=== PATIENT | female | born 1995 | race Caucasian/White ===

== ENCOUNTER → 2017-11-16 | Outpatient (CLI) | payer MEDICAID, OTHER ==
[~2017-11-16] MED LIST: IBUP600T26 PO; ORTH0.35 PO
== END ==
LOC: HPND 10:07
PROVIDERS: ATTEND Obstetrics & Gynecology
DX: O99.212 Obesity complicating pregnancy, second trimester (principal); E66.09 Other obesity due to excess calories; Z68.36 Body mass index [BMI] 36.0-36.9, adult; O34.212 Maternal care for vertical scar from previous cesarean delivery
CPT/HCPCS: 76811

== ENCOUNTER → 2017-12-16 | Outpatient (CLI) | payer MEDICAID | LOC: HPND 10:11 | PROVIDERS: ATTEND Obstetrics & Gynecology | DX: O99.212 Obesity complicating pregnancy, second trimester (principal); E66.09 Other obesity due to excess calories; Z68.36 Body mass index [BMI] 36.0-36.9, adult; O34.211 Maternal care for low transverse scar from previous cesarean delivery | CPT/HCPCS: 76816 ==

== ENCOUNTER 2018-04-05 08:31 | Inpatient (IN) ==
--- NOTE | 2018-04-05 08:52 | P.HPOB ---
History of Present Illness Chief Complaint: Repeat History of Present Illness: Patient is a 22 year old at 39 weeks who presents for scheduled c/s. She received at [facility]. She denies any complications during this . Patient denies contractions, vaginal bleeding, fluid leakage. She endorses positive movement. OBHx: 1. 2013: 36wk IOL for preE (severe) -- complicated by A1GDM, PPH and D&C 2. 2015: 37wk IOL for preE (severe) -- failure to progress -- C/S 3. current, declines , not on ASA 81mg, failed 1'hr, passed 3hr Weeks Gestation:: 39 Para: 2 : 3 Review of Systems All other systems reviewed negative except as stated in HPI PMFSH - Medical / Surgical Hx Neg / Unobtainable Medical Problems Denied: Yes - Medical History Medical History: Medical History History of delivery affecting - Surgical History Surgical History: Surgical History History of tonsillectomy and adenoidectomy - Tobacco History Smoking Status: Never smoker - Alcohol History How Often Do You Have a Drink Containing Alcohol: Never - Substance Use History Substance History: No History of Abuse Medications and Allergies Allergies Allergy/AdvReac Type Severity Reaction Status Date / Time latex Allergy Unknown rash, hives Unverified 03/03/ 02:20 Exam Narrative: GENERAL: Well-nourished, well-developed patient. SKIN: Warm and dry. HEAD: Normocephalic and atraumatic. EYES: No scleral icterus. No injection or drainage. ENT: No nasal drainage noted. Mucous membranes pink. Airway patent. NECK: Supple, trachea midline. No JVD. CARDIOVASCULAR: Regular rate and rhythm without murmurs, gallops, or rubs. RESPIRATORY: Breath sounds equal bilaterally. No accessory muscle use. ABDOMEN/GI: Abdomen soft, non-tender, bowel sounds present, no rebound, no guarding Gravid to 39 weeks size GENITOURINARY: External Genitalia: intact and normal in appearance Membranes: intact Uterine Contractions: none FHT's: Category: 1 Baseline: 145 Reactive: + Variability: moderate Decels: none EXTREMITIES: No cyanosis or edema. NEUROLOGICAL: Awake and alert. Motor and sensory grossly within normal limits. Five out of 5 muscle strength in all muscle groups. Normal speech. Assessment and Plan Patient is a 22 year old at 39 weeks who presents for scheduled c/s. - Plan c/s scheduled for 10:30 a.m. Routine pre-op orders placed. Discussed with OB hospitalist.
[2018-04-05] MEDS ORDERED: Citric Acid/Sodium Citrate Liq 30 ML UDC PO SCH (09:00)
[2018-04-05] MEDS ORDERED: Morphine Sulfate PF Inj 5 MG/10 ML Ampul ONE (09:14)
[2018-04-05 09:31] LABS: Baso % (Auto) 0.3 % (0.0-2.0); Eos % (Auto) 0.1 % (0.0-4.0); Hematocrit 36.6 % (35.0-46.0); Hemoglobin 12.1 gm/dL (11.6-15.3); Lymph # (Auto) 2.1 th/mm3 (1.0-4.8); Lymph % (Auto) 29.7 % (9.0-44.0); Mean Corpuscular Hemoglobin 26.9 pg (27.0-34.0); Mean Corpuscular Volume 81.5 fL (80.0-100.0); Mono # (Auto) 0.4 th/mm3 (0.0-0.9); Mono % (Auto) 5.9 % (0.0-8.0); Neut # (Auto) 4.6 th/mm3 (1.8-7.7); Platelet Count 178 th/mm3 (150-450); Red Blood Count 4.49 mil/mm3 (4.00-5.30); Red Cell Distribution Width 16.4 % (11.6-17.2); White Blood Count 7.2 th/mm3 (4.0-11.0)
[2018-04-05 09:48] LABS: Bacteria,Urine Rare /hpf; Bilirubin,Urine Negative (Negative); Clarity,Urine Hazy (Clear); Color,Urine Amber (Yellw/Straw); Glucose,Urine (UA) Negative (Negative); Leukocyte Esterase,Urine Negative (Negative); Mucus,Urine Few /lpf (Occasional); Nitrite,Urine Negative (Negative); Specific Gravity,Urine 1.029 (1.002-1.035); Squamous Epithelial Cell,Urine 6 /hpf (0-5)
[2018-04-05 09:51] LABS: Amphetamine Screen,Urine Neg (Neg); Barbiturate Screen,Urine Neg (Neg); Cannabinoid Screen,Urine Neg (Neg); Cocaine Screen,Urine Neg (Neg)
[2018-04-05 09:52] LABS: Opiate Screen,Urine Neg (Neg)
[2018-04-05] MEDS ORDERED: ceFAZolin Inj 2,000 MG in Sodium Chlor 0.9% Inj 80 ML IV.SIG SCH ×2 (10:00→18:00)
[2018-04-05] MEDS ORDERED: Phenylephrine/NS 1000 MCG/10ML Syringe IV.PUSH ONE (10:50)
[2018-04-05] MEDS ORDERED: Ketorolac Inj 30 MG/ML (IVP) Vial IV.PUSH ONE (11:45)
[2018-04-05] MEDS ORDERED: Oxytocin 30 Units/500ml Premix 30 UNITS/500 ML BAG IV.SIG ONE (12:00)
--- NOTE | 2018-04-05 12:08 | P.OBDELI ---
Procedure Note - Pre Op Diagnosis (1) History of delivery affecting (2) 39 weeks gestation of - Post Op Diagnosis (1) History of delivery affecting (2) 39 weeks gestation of Performed by: Dax Putnam MD Procedure: Repeat Low Transverse Section Indication for Delivery: Desired elective repeat Informed Consent Obtained: For procedure Confirmed Correct: Patient, Procedure, Site, Time-out taken Anesthesia: Spinal Medication Prior to Procedure: Antibiotics, IV Monitoring During Procedure: monitor Urinary Catheter: Inserted using sterile technique Sterile Preparation: In usual fashion Position: Supine with wedge to right side - Operative Features Skin Incision: Transverse Uterine Incision: Low transverse w/knife / scissors Membranes Ruptured: Artificially Presentation: Occiput anterior Status of Infant: Viable, Umbilical cord, Nursery present Placenta Delivered: Intact Medications: Antibiotics, Oxytocin Estimated blood loss (mL): 500 Procedure Tolerated: Well Maternal Condition: Stable Baby Condition: Stable Procedure in Detail: Patient was taken operating room and placed in supine position after spinal anesthesia transverse Pfannenstiel incision made in the lower abdomen not the old incision use prior. Incision carried the fascia sharply the fascia incised laterally and reflected off the rectus muscle. Perineal cavity entered sharply in the midline and the incision extended superior and inferiorly. The visceral peritoneum reflected off the lower uterine segment placed on the bladder blade. A transverse hysterotomy was made extended bluntly bilaterally and clear fluid noted. Baby delivered from cephalic presentation at 11:06 AM. Baby was female weight 3190 g 9/9, delayed cord clamping was done then cord blood obtained placenta manually extracted. The uterus exteriorized hysterotomy closed in running layer of 0 chromic followed by imbricating suture same hemostasis was achieved. Stick tie [id number] were used to achieve hemostasis lower uterine segment. The bladder reapproximated running layer of 2 -0 Vicryl. The uterus elevated blood suctioned cul-de-sac gutters the uterus replaced the peritoneal cavity. The parietal peritoneum closed running layer of 2-0 Vicryl. The rectus muscle reapproximated with stick ties of chromic. And the fascia closed in running layer of 0 Vicryl. The subcutaneous tissues and space closed with a running 0 plain catgut suture and the skin closed with 3-0 Monocryl subcuticular stitch. Pressure dressing applied low Steri- Strips. Estimate blood loss 500 cc were no complications sponge and needle correct 2 and patient recovery in stable condition - Infant: Female Female A Infant Delivery Date: 04/05/18 Delivery Time: 11:06 Weight: 3.19 kg Delivery of Infant: Uneventful score (1 min): 9 score (5 min): 9
[2018-04-05] MEDS ORDERED: Naloxone Inj 0.4 MG/ML Vial IV.PUSH PRN (14:27)
[2018-04-05] MEDS ORDERED: Oxytocin 30 Units/500ml Premix 30 UNITS/500 ML BAG IV.SIG PRN (16:57)
[2018-04-06 05:52] LABS: Hematocrit 28.6 % (35.0-46.0); Hemoglobin 9.4 gm/dL (11.6-15.3); Mean Corpuscular HGB Conc 32.9 % (32.0-36.0); Mean Corpuscular Hemoglobin 27.3 pg (27.0-34.0); Mean Corpuscular Volume 82.7 fL (80.0-100.0); Mean Platelet Volume 10.1 fL (7.0-11.0); Platelet Count 145 th/mm3 (150-450); Red Blood Count 3.45 mil/mm3 (4.00-5.30); Red Cell Distribution Width 16.3 % (11.6-17.2); White Blood Count 13.6 th/mm3 (4.0-11.0)
--- NOTE | 2018-04-06 08:13 | P.PNOB ---
Subjective Post op day: 1 Interval history: Patient is a 22-year-old delivered at 39 weeks and 2 days. Patient is day 1 after repeat c/s. Patient's pain is well-controlled. Patient reports minimal bleeding. Patient reports eating and drinking without any nausea or vomiting. Patient has not passed gas or had a bowel movement. Patient denies chest pain and shortness of breath. Patient has been ambulating; she denies lower extremity pain. Patient reports desire for contraception, which she will discuss with her PCP at her first follow-up visit. Patient has decided to breast-feed. Objective Vital Signs/I&O: Vital Signs 04/05/18 08:47 04/05/18 12:00 04/05/18 12:25 Temperature 98.1 F 97.9 F Pulse Rate 103 H 66 66 Respiratory Rate 16 18 18 Blood Pressure 123/79 99/57 L 105/62 04/05/18 12:37 04/05/18 12:58 04/05/18 13:44 Temperature 97.7 F 97.9 F Pulse Rate 57 L 57 L 56 L Respiratory Rate 16 16 22 Blood Pressure 107/58 L 102/57 L 118/72 04/05/18 16:30 04/05/18 16:57 04/05/18 19:45 Temperature 98.0 F 97.6 F Pulse Rate 76 68 Respiratory Rate 20 18 Blood Pressure 141/81 H 124/66 04/05/18 23:45 04/06/18 03:45 Temperature 97.7 F 97.7 F Pulse Rate 62 61 Respiratory Rate 18 18 Blood Pressure 107/58 L 109/60 Result Diagrams: 04/06/18 05:07 Objective Remarks: GENERAL: Well-nourished, well-developed patient. CARDIOVASCULAR: Regular rate and rhythm without murmurs, gallops, or rubs. RESPIRATORY: Breath sounds equal bilaterally. No accessory muscle use. ABDOMEN/GI: Abdomen soft, non-tender, bowel sounds present. Incision: Clean, dry and intact. Fundus: Firm, non-tender at umbilicus. GENITOURINARY: Light to moderate bleeding. EXTREMITIES: No cyanosis or edema, non-tender, without signs of DVT. Medications and IVs: Active Medications Diphenhydramine HCl (Benadryl) 50 mg PO Q6H PRN PRN Reason: MILD TO MODERATE ITCHING Stop: 04/06/18 14:26 Diphenhydramine HCl (Benadryl Inj) 25 mg IV.PUSH Q6H PRN PRN Reason: MILD TO MODERATE ITCHING Stop: 04/06/18 14:26 Diphtheria/Pertussis/Tetanus Vacc (Boostrix Vaccine Inj) 0.5 ml IM .ONCE ONE Stop: 04/06/18 16:01 Lactated Ringer's (Lr 1000 Ml Inj) 1,000 mls @ 100 mls/hr IV.CONT .Q10H [facility] Stop: 04/06/18 12:56 Last Admin: 04/06/18 07:57 Dose: Not Given Oxytocin (Pitocin 30 Units/Ns 500 Ml Premix) 30 units in 500 mls @ 100 mls/hr IV.SIG UNSCH PRN PRN Reason: Heavy bleeding Ibuprofen (Motrin) 800 mg PO Q8H PRN PRN Reason: cramping Last Admin: 04/06/18 00:40 Dose: 800 mg Measles/Mumps/Rubella Vaccine Live (M-M-R Ii Vaccine Inj) 0.5 ml SQ .ONCE ONE Stop: 04/06/18 16:01 Miscellaneous Information [place] [place] [facility] [place] 1 each OTHER UNSCH PRN PRN Reason: SEE LABEL COMMENTS Stop: 04/06/18 14:26 Miscellaneous Information [place] [place] 1 each OTHER UNSCH PRN PRN Reason: SEE LABEL COMMENTS Stop: 04/06/18 14:26 Naloxone HCl (Narcan Inj) 0.4 mg IV.PUSH UNSCH PRN PRN Reason: SEE LABEL COMMENTS Stop: 04/06/18 14:26 Oxycodone/Acetaminophen (Percocet 5/325 Mg) 1 tab PO Q4H PRN PRN Reason: PAIN SCALE 3 TO 5 Oxycodone/Acetaminophen (Percocet 5/325 Mg) 2 tab PO Q4H PRN PRN Reason: PAIN SCALE 6 TO 10 Sodium Chloride (Ns Flush) 2 ml IV.FLUSH BID [facility] Last Admin: 04/06/18 00:31 Dose: Not Given Sodium Chloride (Ns Flush) 2 ml IV.FLUSH PRN PRN PRN Reason: FLUSH AFTER USING IV ACCESS Assessment and Plan - Diagnosis (1) delivery delivered Code(s): O82 - Encounter for delivery without indication Status: Acute (2) 39 weeks gestation of Code(s): Z3A.39 - 39 weeks gestation of Status: Resolved - Plan Patient is a 22-year-old delivered at 39 weeks and 2 days. Patient is day 1 after repeat c/s. Continue routine care. Motrin and Percocet when necessary for pain. Encourage OOB. Incision check 1 week post-op. Pelvic rest for 6 weeks will need follow-up appointment at that time. Contraception: Patient to discuss with OB provider. Anticipate discharge tomorrow or Wednesday. duy OB hospitalist
[2018-04-06] MEDS ORDERED: Aluminum/Magnesium/Simethacone Susp 30 ML UDC PO PRN (14:54)
[2018-04-06] MEDS ORDERED: Simethicone 80 MG Chew Tablet PO PRN (15:05)
[2018-04-06] MEDS ORDERED: Diphtheria/Tetanus/Pertussis Vaccine Inj 0.5 ML Syringe IM ONE (16:00)
[2018-04-06] MEDS ORDERED: Measles/Mumps/Rubella Vaccine Inj 0.5 ML Vial SQ ONE (16:00)
[2018-04-06 20:03] VITALS: TEMP 98.1
[2018-04-07] MEDS ORDERED: Senna/Docusate Sodium 8.6/50 MG Tablet PO PRN (00:01)
--- NOTE | 2018-04-07 07:22 | P.PNOB ---
Subjective Post op day: 2 Interval history: Patient is a 22-year-old delivered at 39 weeks and 2 days. Patient is day 2 after repeat c/s. Patient's pain is well-controlled. Patient reports minimal bleeding. Patient reports eating and drinking without any nausea or vomiting. Patient has passed gas but has not yet had a bowel movement. Patient denies chest pain and shortness of breath. Patient has been ambulating; she denies lower extremity pain. Patient reports desire for contraception, which she will discuss with her PCP at her first follow-up visit. Patient has decided to breast-feed. Objective Vital Signs/I&O: Vital Signs 04/06/18 08:00 04/06/18 17:00 04/06/18 20:01 Temperature 97.6 F 97.9 F 98.1 F Pulse Rate 66 81 82 Respiratory Rate 16 18 18 Blood Pressure 99/56 L 116/86 114/69 Result Diagrams: 04/06/18 05:07 Objective Remarks: GENERAL: Well-nourished, well-developed patient. CARDIOVASCULAR: Regular rate and rhythm without murmurs, gallops, or rubs. RESPIRATORY: Breath sounds equal bilaterally. No accessory muscle use. ABDOMEN/GI: Abdomen soft, non-tender, bowel sounds present. Incision: Clean, dry and intact. Fundus: Firm, non-tender at umbilicus. GENITOURINARY: Light to moderate bleeding. EXTREMITIES: No cyanosis or edema, non-tender, without signs of DVT. Medications and IVs: Active Medications Oxytocin (Pitocin 30 Units/Ns 500 Ml Premix) 30 units in 500 mls @ 100 mls/hr IV.SIG UNSCH PRN PRN Reason: Heavy bleeding Ibuprofen (Motrin) 800 mg PO Q8H PRN PRN Reason: cramping Last Admin: 04/07/18 01:03 Dose: 800 mg Oxycodone/Acetaminophen (Percocet 5/325 Mg) 1 tab PO Q4H PRN PRN Reason: PAIN SCALE 3 TO 5 Oxycodone/Acetaminophen (Percocet 5/325 Mg) 2 tab PO Q4H PRN PRN Reason: PAIN SCALE 6 TO 10 Senna/Docusate Sodium (Greta-Colace) 1 tab PO DAILY PRN PRN Reason: CONSTIPATION Last Admin: 04/07/18 01:03 Dose: 1 tab Simethicone (Mylicon Chew) 80 mg PO Q8H PRN PRN Reason: GAS RETENTION Last Admin: 04/06/18 16:11 Dose: 80 mg Sodium Chloride (Ns Flush) 2 ml IV.FLUSH BID [facility] Last Admin: 04/07/18 00:51 Dose: Not Given Sodium Chloride (Ns Flush) 2 ml IV.FLUSH PRN PRN PRN Reason: FLUSH AFTER USING IV ACCESS Assessment and Plan - Diagnosis (1) delivery delivered Code(s): O82 - Encounter for delivery without indication Status: Acute (2) 39 weeks gestation of Code(s): Z3A.39 - 39 weeks gestation of Status: Resolved - Plan Patient is a 22-year-old delivered at 39 weeks and 2 days. Patient is day 2 after repeat c/s. Continue routine care. Motrin and Percocet when necessary for pain. Encourage OOB. Incision check 1 week post-op. Pelvic rest for 6 weeks will need follow-up appointment at that time. Contraception: Patient to discuss with OB provider. Anticipate discharge tomorrow. duy OB hospitalist
[2018-04-07 08:07] VITALS: BP 123/85; PULSE 88; RESP 20
== END 2018-04-07 11:27 | disposition home or self-care (01) ==
LOC: H2E 08:31 → H1EA 13:37
PROVIDERS: ADMIT Obstetrics & Gynecology Maternal & Fetal Medicine; ATTEND Obstetrics & Gynecology Maternal & Fetal Medicine